=== PATIENT | female | born 2000 | race Caucasian/White ===

== ENCOUNTER 2022-02-08 22:24 | Inpatient (IN) | payer OTHER ==
[~2022-02-08] VITALS: Ht 149.9 cm; Wt 72.6 kg
[2022-02-09] MEDS ORDERED: PRENATAL + DHA1 EAC1 PO (08:38)
== END 2022-02-11 16:15 | disposition home or self-care (01) | DRG 807 ==
LOC: OBS/DEL 22:24 → LDR 02-09 07:43 → OB/GYN 02-09 07:43 → OBS/DEL 02-09 07:43 → OB/GYN 02-09 12:01
PROVIDERS: ADMIT Obstetrics & Gynecology; ATTEND Obstetrics & Gynecology
PROC: 10E0XZZ Delivery of Products of Conception, External Approach (ICD-10-PCS; principal; 2022-02-09)
PROC: 4A1HXCZ Monitoring of Products of Conception, Cardiac Rate, External Approach (ICD-10-PCS; 2022-02-09)
DX: O80 Encounter for full-term uncomplicated delivery (principal); Z37.0 Single live birth; Z3A.39 39 weeks gestation of pregnancy; Z20.822 Contact with and (suspected) exposure to COVID-19